=== PATIENT | male | born 1950 | race Caucasian/White ===

== ENCOUNTER 2018-05-18 11:10 | Emergency (ER) | payer MEDICARE ==
[~2018-05-18] VITALS: Ht 170.2 cm; Wt 78.5 kg
[2018-05-18] MEDS ORDERED: OXYC10TA47 PO (11:32)
[2018-05-18] MEDS ORDERED: AMLO1CAP10 PO (11:32)
[2018-05-18] MEDS ORDERED: ATOR40TA PO (11:32)
[2018-05-18] MEDS ORDERED: METF500T27 PO (11:32)
[2018-05-18] MEDS ORDERED: ZOLP10TA5 PO (11:32)
[2018-05-18 11:58] LABS: BASOPHILS # (AUTO) 0.02 x10^3/uL (0-0.1); BASOPHILS % (AUTO) 0 % (0-1); EOSINOPHILS # (AUTO) 0.08 x10^3/uL (0-0.4); EOSINOPHILS % (AUTO) 1 % (1-7); LYMPHOCYTES # (AUTO) 1.41 x10^3/uL (1-3.4); LYMPHOCYTES % (AUTO) 22 % (22-44); MD NO; MEAN CORPUSCULAR HEMOGLOBIN 34.1 pg (27.5-34.5); MEAN CORPUSCULAR HGB CONC 34.2 g/dL (33.2-36.2); MEAN PLATELET VOLUME 8.1 fL (7.4-10.4); MONOCYTES % (AUTO) 8 % (2-9); NEUTROPHILS # (AUTO) 4.28 x10^3/uL (1.8-6.8); NEUTROPHILS % (AUTO) 68 % (42-75); PLATELET COUNT 160 x10^3/uL (130-400); RED BLOOD COUNT 4.15 x10^6/uL (4.38-5.82); RED CELL DISTRIBUTION WIDTH 13.1 % (9.4-14.8)
[2018-05-18] MEDS ORDERED: PLEASE ENTER HEIGHT AND WEIGHT MC SCH (12:00)
[2018-05-18] MEDS ORDERED: SODIUM CHLORIDE FLUSH 10ML SYR IVF ONE (12:00)
[2018-05-18 12:07] LABS: ALANINE AMINOTRANSFERASE 23 U/L (12-78); ALBUMIN 3.4 g/dL (3.4-5.0); ANION GAP 8 mmol/L (5-15); CALCIUM 8.6 mg/dL (8.5-10.1); CHLORIDE 106 mmol/L (98-107); CREATININE 1.17 mg/dL (0.7-1.3)
[2018-05-18 12:10] LABS: SALICYLATE LEVEL < 1.7 mg/dL (2.8-20.0)
[2018-05-18 12:11] LABS: ALKALINE PHOSPHATASE 62 U/L (45-117); BILIRUBIN,TOTAL 0.6 mg/dL (0.2-1.0); TOTAL PROTEIN 6.7 g/dL (6.4-8.2); TROPONIN I 0.019 ng/mL (0.000-0.045)
[2018-05-18 12:45] LABS: MICROSCOPIC NOT IND
[2018-05-18 12:49] LABS: CULTURE INDICATED? NO
[2018-05-18 12:55] LABS: AMPHETAMINE SCREEN, URINE Negative (Negative); BARBITURATE SCREEN, URINE Negative (Negative); BENZODIAZEPINE SCREEN, URINE Negative (Negative); CANNABINOID SCREEN, URINE Negative (Negative); COCAINE SCREEN, URINE Negative (Negative); METHADONE SCREEN, URINE Negative (Negative); OPIATE SCREEN, URINE Positive (Negative)
[2018-05-18 13:28] VITALS: BP 121/69
[2018-05-18] MEDS ORDERED: LIDOCAINE 2%, 20ML SQ ONE (14:00)
== END 2018-05-18 14:13 | disposition home or self-care (01) ==
LOC: ED 13:55
DX: R41.82 Altered mental status, unspecified (principal); E11.9 Type 2 diabetes mellitus without complications; R42 Dizziness and giddiness; R51 Headache
CPT/HCPCS: 36415; 70450; 71045; 80053; 80307; 80329; 81003; 82140; 84484; 85025; 93005; 99285; G0480